=== PATIENT | male | born 2005 | race Caucasian/White ===

== ENCOUNTER 2025-06-22 14:50 | Emergency (ER) | payer BC, SELFPAY ==
--- OUTSIDE RECORDS SUMMARY | 2019-08-01 09:30 | XMS_ITS | Continuity of Care Document ---
Author Organization [employer] [place] Address [address] [place] [address] [address] [place] [address] Phone Care Team Providers Care Director Of Pharmacy Name Role Phone Melissa AYALA CMPTKrzysztof Unavailable Unavailable Procedures Procedure Date Therapeutic Activities Neuromuscular Re-Ed Therapeutic Exercise Manual Therapy Therapeutic Activities Neuromuscular Re-Ed Therapeutic Exercise Manual Therapy Therapeutic Activities Neuromuscular Re-Ed Therapeutic Exercise Therapeutic Activities Neuromuscular Re-Ed Therapeutic Exercise Manual Therapy Therapeutic Activities Neuromuscular Re-Ed Therapeutic Exercise Manual Therapy Therapeutic Activities Neuromuscular Re-Ed Therapeutic Exercise Therapeutic Activities Neuromuscular Re-Ed Therapeutic Exercise PT Evaluation Moderate Complexity Neuromuscular Re-Ed Therapeutic Exercise PT Re-evaluation Therapeutic Exercise Neuromuscular Re-Ed Therapeutic Exercise Therapeutic Activities Neuromuscular Re-Ed Therapeutic Exercise Therapeutic Activities Neuromuscular Re-Ed Therapeutic Exercise Therapeutic Activities Neuromuscular Re-Ed Therapeutic Exercise Therapeutic Activities Neuromuscular Re-Ed Therapeutic Exercise Therapeutic Activities Neuromuscular Re-Ed Therapeutic Exercise Therapeutic Activities Neuromuscular Re-Ed Therapeutic Exercise Therapeutic Activities Neuromuscular Re-Ed Therapeutic Exercise Therapeutic Activities Neuromuscular Re-Ed Therapeutic Exercise Therapeutic Activities Neuromuscular Re-Ed Therapeutic Exercise Therapeutic Activities Neuromuscular Re-Ed PT Evaluation Low Complexity Therapeutic Exercise Therapeutic Activities Advance Directives Directive Yes / No Effective Date File Name No Information Encounters Encounter Description Practice Location Reason(s) For Visit Diagnoses Date Provider Providers Copied on Encounter [facility] [address], [place], [place], [id number], tel:[phone] [place] No Information 0 Melissa Blankenship. [address] [facility], [address], [place], [facility], . tel:[phone] [facility] [place] [address], [id number], tel:[phone] [place] No Information 0 Sandy Soni. . [facility], [place], [place], [id number], tel:[phone] [place] No Information 0 Melissa Blankenship. [address] [facility], [address], [place], [facility], . tel:[phone] [facility] [place] [address], [place], [place], [id number], tel:[phone] [place] No Information Dec-3 1-201 9 Wilner Cook. [address] [place] [address], [address], [place], [place], [facility], . tel:[phone] [place], [place] [address], [place], [id number], tel:[phone] [place] No Information Dec-2 6-201 9 [place] Krzysztof. [address] [place] [address], [address], [place], [place], [facility], [place]. tel:[phone] [place], [place] [address], [place], [id number], tel:[phone] [place] No Information Dec-2 3-201 9 [place] Krzysztof. [address] [place] [address], [address], [place], [place], [facility], . tel:[phone] [place] [address] [address], [place], [id number], tel:[phone] [place] No Information Dec- 8-201 9 [place] Krzysztof. [address] [place] [address], [address], [place], [facility], [place]. tel:[phone] [place], [place] [address] [address], [place], [place], [id number], tel:[phone] [place] No Information Dec-1 6201 9 [place] Krzysztof. [address] [place] [address], [address], [place], [facility], [place]. tel:[phone] [place], [place] [address] [address], [place], [id number], tel:[phone] [place] Pain in right elbowOther specified extrapyramida l and movement disordersOthe r instability, right shoulderMuscl e weakness (generalized) Apr-0 9-201 8 [place] Krzysztof. [address] [place] [address], [address], [place], [place], [facility], [place]. tel:[phone] Referring Provider: Radha Venegas, [address] [place], [address]. tel:[phone] [facility] [address] [place] [address], [place], [place], [id number], tel:[phone] [place] Pain in right elbowOther specified extrapyramida l and movement disordersOthe r instability, right shoulderMuscl e weakness (generalized) Apr-0 2-201 8 [place] Krzysztof. [address] [facility], [address], [place], [address], [place]. tel:[phone] Referring Provider: Radha Venegas, [facility] [place], [address]. tel:[phone] [place] [address], [place], [id number], tel:[phone] [place] Pain in right elbowOther specified extrapyramida l and movement disordersOthe r instability, right shoulderMuscl e weakness (generalized) Sep- 9- 8 [place] Krzysztof. [address] [facility], [address], [place], [address], [place]. tel:[phone] Referring Provider: Radha Venegas, [facility] [place], [address]. tel:[phone] [facility] [address] [place] [address], [place], [place], [id number], tel:[phone] [place] Pain in right elbowOther specified extrapyramida l and movement disordersOthe r instability, right shoulderMuscl e weakness (generalized) Sep- 2-201 8 [place] Krzysztof. [address] [facility], [address], [place], [address], [place]. tel:[phone] Referring Provider: Radha Venegas, [facility] [place], [address]. tel:[phone] [facility] [address] [address], [place], [place], [id number], [place] tel:[phone] [place] No Information Mar-0 9-201 8 [place] Krzysztof. [address] [facility], [address], [place], [facility], . tel:[phone] Referring Provider: Radha M Rubi, [address] [place], [address]. tel:[phone], [id number], tel:[phone] [place] No Information Mar-0 7-201 8 [place] Krzysztof. [address] [place] [address], [address], [place], [facility], [place]. tel:[phone] Referring Provider: Radha M Rubi, [address] [place], [address]. tel:[phone], [id number], tel:[phone] [place] No Information Sep-0 2-201 8 [place] Krzysztof. [address] [place] [address], [address], [place], [facility], [place]. tel:[phone] Referring Provider: Radha M Rubi, [address] [place], [address]. tel:[phone], [id number], tel:[phone] [place] No Information Aug-2 8-201 8 [place] Krzysztof. [address] [place] [address], [address], [place], [facility], [place]. tel:[phone] Referring Provider: Radha Carreno Rubi, [address] [place], [address]. tel:[phone], [id number], tel:[phone] [place] No Information b-2 3-201 8 [place] Krzysztof. [address] [place] [address], [address], [place], [facility], . tel:[phone] Referring Provider: Radha Venegas, [address] [place], [address]. tel:[phone], [id number], tel:[phone] [place] No Information 8 Mular[place] Krzysztof. [address] [facility], [address], [facility], . tel:[phone] Referring Provider: Radha Venegas, [facility] [place], [address]. tel:[phone], [id number], tel:[phone] [place] No Information 8 Mularryl Krzysztof. [address] [place] [address], [address], [facility], . tel:[phone] Referring Provider: Radha Venegas, [facility] [place], [address]. tel:[phone], [id number], tel:[phone] [place] Pain in right elbowOther specified extrapyramida l and movement disordersOthe r instability, right shoulderMuscl e weakness (generalized) 8 [place] Krzysztof. [address] [facility], [facility] [address], [place], [facility], . tel:[phone] Referring Provider: Radha Venegas, [address] [place], [address]. tel:[phone] Family History Family Member Type Diagnosis Age At Onset No Information Payers Payer name Insurance type Covered constitution party ID Cristiana sin(s) [facility] CI [id number] Social History Type Description Quantity Date Captured Comments Sex Male Smoking Status No Information Chief Complaint And Reason For Visit No Information Reason For Referral Reason For Referral No Information History Of Present Illness Encounter Date Complaint History Of Prese nt Illness No Information Functional Status Date Functional Assessmen t No Information Instructions Date Instruction Additional Infor mation No Information Assessments Type Assessment Date No Information Patient Care Teams Name Effective Dates (start - stop) Status Members No Information
--- NOTE | ~2025-06-22 | US_ITS ---
EXAMINATION: US scrotum doppler, 06/22/2025 16:10 [place] HISTORY: right testicle pain Comparison: None Technique: Escalante-scale and color Doppler images were obtained of the testes with spectral analysis to document arterial and venous flow. Findings: Right Testicle:Right testicle 4.1 x 2.2 x 2.5 cm, normal parenchymal, normal flow. Right Epidiymis:Right epididymis subcentimeter cyst, no increased flow. Left Testicle: Left testicle 4.4 x 2.2 x 2.2 cm, normal parenchymal, normal flow. Left Epidiymis: Unremarkable. Normal flow. Hydrocele: Small simple appearing right hydrocele. . Varicocele: None Scrotum: Unremarkable. No skin thickening. Impression: 1. Nonspecific small simple appearing right hydrocele. Follow-up suggested to assess resolution Reviewed, dictated and finalized at location P. LER Impression: 1. Nonspecific small simple appearing right hydrocele. [facility]
--- OUTSIDE RECORDS SUMMARY | 2025-06-22 14:52 | XMS_ITS | Patient Health Record ---
Author Organization [facility] [employer]. Address [address] [place] [address] Care Team Providers Care Respiratory Tech Name Role Phone Dr. Davi Louis Primary Care Provider Brian Navarrete Unavailable [phone] Allergies No Known Allergies Reason For Referral No Information Immunizations Vaccine Route Administration Date Status Comme nts HPV VIRUS VACCINE 9 (Gardasil 9) Unknown 04/01/2016 Adm inistered HPV VIRUS VACCINE 9 (Gardasil 9) Unknown 05/05/2016 Adm inistered HPV VIRUS VACCINE 9 (Gardasil 9) Unknown 12/19/2017 Adm inistered Meningococcal MCV4P (Menactr a MenACWY-D) Unknown 04/21/2022 Administered Tdap (Boostrix, Adacel) Unknown 04/29/2015 Administered Social History Sex Assigned At : Social History Observation Description Sex Assigned At Male Alcohol Screen (Audit-C) Question Answer Notes Did you have a drink contain ing alcohol in the past year? Yes How often did you have 6 or more drinks on one occasion in the past year? Less than monthly (1 point) How many drinks did you have on a typical day when you were drinking in the past year? 5 or 6 drinks (2 points) Tobacco use other than smoking: Question Answer Notes Are you an other tobacco user? No Problems Problem Type SNOMED Code ICD Code Onset Dates Problem Status W/U Status Risk Notes Problem Attention deficit hyperactivity disorder, predominantly inattentive type (disorder) (44419331) Attention and concentration deficit (R41.840) Active confirmed Problem Anxiety (22680927) Anxiety (F41.9) Active confirmed Problem Moderate recurrent major depression (84839141) MDD (major depressive disorder), recurrent episode, moderate (F33.1) Active confirmed Plan Of Treatment No Information Insurance Providers Payer Name Payer Address Payer Phone Subscriber Number Group Number Insured Name Patient Relationship to Insured Coverage Start Date Coverage End Date Rhianna [facility] [address] [place] [address] [id number] Augusto Griffiths Self - patient is the insured 4 Medical (General) History Medical History History ICD Code Do you have any history of the following ?: Depression Surgical History Surgery Date(Month/Year) [place] Teeth Removal 2022
--- OUTSIDE RECORDS SUMMARY | 2025-06-22 14:52 | XMS_ITS | Clinical Summary ---
Author Organization [facility] Address [address] [place] [address] Care Team Providers Care Manager Wound Care Name Role Phone Annabella Galloway MD Unavailable [phone] Annabella Galloway MD Primary Care Provider [phone] Avi Butler MD Unavailable [phone] Source Comments [facility],non-owned Affiliates and Associated Physician Practices is amultiple site organization consisting of ambulatory clinics and hospital sitesin [place], [place], [place] and [place]. This disclosure is being madepursuant to the Care Everywhere program and may not contain all information available regarding this patient. 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 Alwaysverify current medications with the patient. cetirizine (ZYRTEC) 10 MG chew tablet Take 1 Tab by mouth once daily. 30 Tab 6 09/14/2013 Active ibuprofen (IBUPROFEN MYLES STRENGTH) 100 MG chew tablet Take 3 tablets every 6 hours as needed for fever/pain 30 Tab 6 09/14/2013 Active Acetaminophen 160 MG CHEW Take 2 tablets every 3 hours as needed for pain 30 Tab 6 09/14/2013 Active rizatriptan, disintegrating, ([employer]) 5 MG tabletIndicatio ns:Migraines Take 1 Tab by mouth once as needed for Migraine for up to 1 dose. 10 Tab 0 07/18/2014 Active levalbuterol (Xopenex) 45 MCG/ACT inhaler INHALE 2 PUFFS BY MOUTH EVERY 6 HOURS FOR 10 DAYS 06/23/2021 Active Active Problems Patient Care Coordination No te Formatting of this note migh t be different from the original. 06/05/19 NO FURTHER REFILLS UNTIL SEEN IN OFFICE FOR C APPT Problem Noted Date Diagnosed Date RAD (reactive airway disease) 07/06/2012 Viral respiratory infection 06/27/2012 Overview (07/02/2012): Augusto is a 7 year old male with a history of suspected RAD who presented with two days of cough, fever to 104, oxygen requirement and concern for PNA on CXR. Poor PO and increased WOB. Given two hour long breathing treatments at OSH, started on fluids and given ceftriaxone. Overnight with some increase in retractions that cleared with treatment, suctioning, and cough. Transferred to the floors with tachypnea and return of supraclavicular retractions, saturating in the 90s. Air entry reduced on the Left. Received 10 hour treatment with Xopenex, Magnesium sulfate and solumedrol, Heliox and turbutaline drip at the PICU. Currently sating at 94-96% on room air when awake but desats to the 80s when sleeping. On the floor he was given humidified air and O'Jameel's solution (magic mouthwash of lidocaine/Diphenhydramine). He continued to improve and was weaned off oxygen. Upon discharge he was on RA, with no increased WOB, retractions, or nasal flaring. He was given asthma education and sent home on his home regimen. He is to follow up with his Dr. Galloway next week. Dehydration 06/27/2012 Overview (07/02/2012): Labs and exam on admission were consistent with dehydration, bolus given at OSH. Voiding well now that he is rehydrated. He was eating and drinking well when he was on the pediatric brink in the hospital. Immunizations Immunization Administration Dates Next Due DTAP/IPV 02/24/2010 DTaP VACCINE IM (6wk-6yrs) 05/24/2006,,2005,04/27 HEP A PEDS 2 DOSE 02/21/2007,08/16/2006 HIB Hep B 05/24/2006,2005,2005 Human Papilloma Virus Nine[place] lent Vaccine 12/19/2017,05/05/2016,04/01/2016 INFLUENZA VACCINE 05/25/2007, 6,2005,08/26 MENINGOCOCCAL ACWY (MCV4P) VAC IM 04/21/2022, MENINGOCOCCAL B RECOMBINANT, 2 OR 3 DOSE, IM 04/21/2022 MMR 02/25/2006 MMR/VARICELLA 02/24/2010 PNEUMOCOCCAL CONJ, PEDS 05/24/2006,08/26,2005,04/27 POLIO IPV 2005,2005,2005 PPD 02/25/2006 TDAP (7yrs+) 04/29/2015 VARICELLA 02/25/2006 Family History Medical History Relation Name Comments Asthma Neg Hx CVA Neg Hx Cancer - Breast Neg Hx Cancer - Other Neg Hx Cancer - Skin, Melanoma Neg Hx Cancer - Skin, Non Melanoma Neg Hx Eczema Neg Hx Hemophilia Neg Hx Psoriasis Neg Hx Social History Tobacco Use Types Packs/Day Years Used Date Smoking Tobacco: Never Smokeless Tobacco: Never Alcohol Use Standard Drinks/Week Comments No 0 (1 standard drink = 0.6 oz pur e alcohol) PHQ-2 Answer Date Recorded PHQ2 TOTAL SCORE 0 04/21/2022 Sex and Gender Information Value Date Recorded Sex Assigned at Not on file Legal 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 Gender Identity Not on file Sexual Orientation Not on file Last Filed Vital Signs Vital Sign Reading Time Taken Comments Blood Pressure 118/80 04/21/2022 9:44 AM CDT Pulse 80 04/21/2022 9:44 AM CDT Temperature 36.7 C (98 F) 04/21/2022 9:44 AM CDT Respiratory Rate 12 04/21/2022 9:44 AM CDT Oxygen Saturation 98% 04/21/2022 9:44 AM CDT Inhaled Oxygen Concentration 50% 07/02/2012 7 :40 AM YEAST DISTILLER Weight 65 kg (143 lb 3.2 oz) 04/21/2022 9:44 AM CDT Height 167 cm (5' 5.75) 04/21/2022 9:44 AM CDT Body Mass Index 23.29 04/21/2022 9:44 AM CDT Plan of Treatment Health Maintenance Due Date Last Done Comments HIV SCREENING 02/18/2020 MENINGOCOCCAL (Group B) VACC INE SHARED DECISION-MAKING (2 of 2 - Trumenba SCDM 2-dose series) 10/20/2022 04/21/2022 HEPATITIS C SCREENING 02/13/2023 DEPRESSION SCREENING 07/11/2024 04/21/2022 COVID-19 VACCINE ( - 2024-2 6 season) 2025 INFLUENZA VACCINE (#1) 2025 7, 05/24/2006, 2005, Additional history exists DTAP/TDAP/TD VACCINES (7 - T d or Tdap) 04/29/2025 04/29/2015, 02/24/2010, 05/24/2006, Additional history exists ZOSTER VACCINE (1 of 2) 2055 HEPATITIS B VACCINE Completed 05/24/2006, 2005, 2005 HIB VACCINE Completed 05/24/2006, 06/10, 2005 PNEUMOCOCCAL VACCINE Completed 05/24/2006, 2005, 2005, Additional history exists HPV VACCINE Completed 12/19/2017, 04/11, 04/01/2016 MENINGOCOCCAL GROUPS A/C/Y/W VACCINE Completed 04/21/2022, 04/01/2016 Goals Goal Patient Goal Type Associated Problems Recent Progress Patient-Stated? Author Use safety retraint in car Lifestyle On track( 022 9:47 AM CDT) Nichol Rice MA Insurance [employer] * Guarantor: AUGUSTO LARSON Account Type Relation to Patient Date of Phone Billing Address Personal/Family 2005 [place] TIAGO LARSON [address] [place] [address] [place] [address] Care Teams Manager Wound Care Relationship Specialty Start Date End Date Annabella Galloway MD [address] [place] [address] PCP - Pediatrics 06/04/09 Annabella Galloway MD [address] [place] [address] PCP - General Pediatrics 12/29/11 Avi Butler MD [address] [place] [address] Orthopedic Surgery 05/10/19
[2025-06-22 14:57] VITALS: BP 137/77; PULSE 120; RESP 16; TEMP 36.6; O2SAT 100
[2025-06-22 16:29] LABS: Add Urine Microscopic? YES; Appearance Urine Turbid (Clear); Glucose Urine UA Negative (Negative); Leukocyte Esterase Ur Negative LEU/UL (Negative); Nitrate Urine Negative (Negative); Non Pathogenic Casts 0-2; Specific Grav Ur 1.009 (1.001-1.035)
--- NOTE | 2025-06-22 16:29 | ED_ITS ---
HPI - General Adult General Chief complaint: Urogenital-Male Stated complaint: R testicle pain Time Seen by Provider: 06/22/25 15:54 History of Present Illness HPI narrative: patient 20-year-old gentleman presents emergency department chief complaint of right testicle pain patient reports the last couple weeks he has had discomfort in his right testicle reports he has had similar symptoms a few years ago of a reports that the pain has started now and went to urgent care but was told that they could only do a urinalysis. Related Data Allergies Allergy/AdvReac Type Severity Reaction Status Date / Time EGGS ASSUMED FROM FLU SHOT Allergy Mild Itching Uncoded 06/22/25 14:51 REACTION [place] Allergy Unknown FROM Uncoded 03/15/18 09:04 TESTING Review of Systems Review of Systems: A 10 system review of systems was completed on the patient and is negative except for what is stated in the HPI. Nursing and ancillary documentation was reviewed. Exam Narrative: GENERAL: Well-appearing, well-nourished, and in no acute distress. HEAD: Normocephalic, atraumatic. EYES: PERRLA and EOMI. ENT: Nares clear, no rhinorrhea or epistaxis. Mucous membranes moist. NECK: Supple. CHEST: Clear to auscultation. No respiratory distress. HEART: Regular rate and rhythm. No murmur heard. Normal peripheral pulses. ABDOMEN: Soft, nontender, nondistended, normal active bowel sounds. : Scrotum is not erythematous nontender to palpation EXTREMITIES: Normal range of motion. No edema. SKIN: Warm, dry, no rash. NEURO: No focal deficits. Alert and oriented x3. PSYCH: Normal mood and affect. Course Vital Signs Vital signs: Vital Signs Temperature 36.6 C 06/22/25 14:57 Pulse Rate 120 H 06/22/25 14:57 Respiratory Rate 16 06/22/25 14:57 Blood Pressure 137/77 06/22/25 14:57 Pulse Oximetry 100 06/22/25 14:57 Oxygen Delivery Room Air 06/22/25 14:57 Temperature 36.6 C 06/22/25 14:57 Pulse Rate 120 H 06/22/25 14:57 Respiratory Rate 16 06/22/25 14:57 Blood Pressure 137/77 06/22/25 14:57 Pulse Oximetry 100 06/22/25 14:57 Oxygen Delivery Room Air 06/22/25 14:57 MDM Differential Diagnosis Differential Diagnosis: differential diagnosis includes testicular torsion epididymitis, orchitis, hydrocele, variceal, chlamydia gonorrhea, UTI urinalysis showed no evidence UTI GC chlamydia was negative Doppler of the scrotum showed evidence of hydrocele no evidence testicular torsion Lab Data Labs: Lab Results 06/22/25 Range/Units 16:17 Urine Color Yellow (Yellow) Urine Appearance Turbid H (Clear) Urine pH 8.0 (5.0-9.0) Ur Specific [place] 1.009 (1.001-1.035) Urine Protein Negative (Negative) mg/dL Urine Glucose (UA) Negative (Negative) mg/dL Urine Ketones Negative (Negative) mg/dL Ur Blood (Man) Negative (Negative) Urine Nitrate Negative (Negative) Urine Bilirubin Negative (Negative) Urine Urobilinogen 0.2 (<2.0) mg/dL Leukocyte Esterase Rfl Negative (Negative) MARIUM/UL Urine RBC 0-2 (0-2) /hpf Urine WBC 0-5 (0-3) /hpf Ur Squamous Epith Cells None seen (Few) /hpf Urine Bacteria None seen /hpf Urine Casts 0-2 C. trachomatis (PCR) Not detected (NOT DETECTE) N. gonorrhoeae (PCR) Not detected (NOT DETECTE) Imaging Data Radiologist's impression: ITS Impressions Scrotum Ultrasound 06/22/25 17:21 Impression: 1. Nonspecific small simple appearing right hydrocele. Follow-up suggested to assess resolution Discharge Plan Discharge Clinical Impression: Hydrocele Patient Disposition: Home Condition: Stable Instructions: Antibiotic Form, Hidrocele (ED), Testicle Pain (ED) Patient Language: Chinese Follow-up/Referrals: Westley Aguilar MD [Physician, Family Practice] Darwin Barnes MD [Physician, Urology] UNKNOWN,DOCTOR [Primary Care Provider] Time of Disposition: 17:53
== END 2025-06-22 18:13 | disposition home or self-care (01) ==
PROVIDERS: Emergency Provider Emergency Medicine
DX: N43.3 Hydrocele, unspecified (principal)
CPT/HCPCS: 76870; 81001; 87491; 87591; 93976; 99284